=== PATIENT | male | born 1960 | race Caucasian/White ===

== ENCOUNTER 2025-05-05 14:52 | Emergency (ER) | payer OTHER ==
[2025-05-05] MEDS ORDERED: Lidocaine 1% PF 5 ML VIAL ONE (15:47)
== END 2025-05-05 16:27 ==
LOC: ERS 14:52
DX: S61.215A Laceration without foreign body of left ring finger without damage to nail, initial encounter (principal); I10 Essential (primary) hypertension; W26.8XXA Contact with other sharp object(s), not elsewhere classified, initial encounter; Y93.89 Activity, other specified; Y92.149 Unspecified place in prison as the place of occurrence of the external cause
CPT/HCPCS: 12001; 99282